=== PATIENT | male | born 1995 | race Two or more races ===

== ENCOUNTER 2020-02-08 21:53 | Emergency (ER) | payer OTHER ==
[~2020-02-08] VITALS: Ht 172.7 cm; Wt 77.1 kg
[2020-02-08 22:02] VITALS: BP 136/102
== END 2020-02-09 02:55 | disposition left against medical advice (07) ==
LOC: ER 21:55
DX: R50.9 Fever, unspecified (principal); Z20.828 Contact with and (suspected) exposure to other viral communicable diseases
CPT/HCPCS: 71045; 87070; 87804; 87880; 99284; U0003